=== PATIENT | male | born 1950 | race Caucasian/White ===

== ENCOUNTER 2016-09-16 12:02 | Day surgery (SDC) | payer MEDICARE, OTHER ==
[2016-09-16] MEDS ORDERED: PROPOFOL 10 MG/ML VIAL IV ONE (15:47)
[2016-09-16] MEDS ORDERED: LIDOCAINE 2% MDV (20MG/ML) 20ML VIAL IV ONE (15:47)
--- NOTE | 2016-09-17 16:30 | Operative Note ---
DATE OF SURGERY: 09/16/2016 OPERATION: COLONOSCOPY to the cecum with electrocautery snare polypectomy and cold snare polypectomy. INDICATION: History of adenomatous polyps. The patient returns at this time for surveillance. ANESTHESIA: Intravenous sedation was administered by the department of anesthesiology and included Diprivan titrated to effect. PROCEDURE: Following informed consent from this alert individual, including a discussion of the risks and benefits of the procedure and an opportunity for the patient to ask questions, the patient was placed in the left lateral decubitus position. A digital rectal examination was performed. No abnormalities were noted. Following this, the Olympus [id number] video colonoscope was inserted into the rectum without resistance. The rectal mucosa had a normal appearance with normal folds and distensibility. The colonoscope was advanced up through the colon to the level of the cecum without much difficulty. Throughout the bowel, the mucosa appeared normal, the folds are normal and the bowel was fairly well distensible. The cecum was well defined by noting the appendiceal orifice and ileocecal valve. At the cecum there was a sessile 7-8 mm polyp noted along the fold which was removed with electrocautery snare polypectomy. A white eschar was noted. There was no bleeding. The colonoscope was then withdrawn. In the transverse colon, there was a second polyp measuring approximately 5 mm in size which was removed with cold snare polypectomy and suctioned through the endoscope into a collection trap. The colonoscope was then further withdrawn. No additional changes were appreciated. Retroflexion in the rectum was endoscopically normal. The endoscope was then straightened and removed. The patient tolerated the procedure well and was returned to the recovery area in stable condition. IMPRESSION: 1. A 7-8 mm cecal polyp removed with electrocautery snare polypectomy. 2. A 5 mm transverse colon polyp removed with cold snare polypectomy. RECOMMENDATIONS: Further recommendations may be forthcoming pending results of pathology obtained today. Followup will be with Dr. Mora. As always, thank you for allowing me to participate in the care of your patient. Aldair Chinchilla, CC: MICHELLE MORA MD, [facility]
== END 2016-09-16 14:41 | disposition home or self-care (01) ==
LOC: HOP 12:02
PROVIDERS: ATTEND Internal Medicine Gastroenterology
DX: Z09 Encounter for follow-up examination after completed treatment for conditions other than malignant neoplasm (principal); Z86.010 Personal history of colon polyps; D12.2 Benign neoplasm of ascending colon; D12.3 Benign neoplasm of transverse colon; E03.9 Hypothyroidism, unspecified; G20 Parkinson's disease; E11.9 Type 2 diabetes mellitus without complications; Z79.84 Long term (current) use of oral hypoglycemic drugs; E78.00 Pure hypercholesterolemia, unspecified